=== PATIENT | male | born 1935 | race Caucasian/White ===

== ENCOUNTER 2016-12-10 20:42 | Inpatient (IN) | payer MEDICAID ==
[2016-12-10] MEDS ORDERED: ACETAMINOPHEN SUPPOSITORY 650 MG SUPP RECTAL PRN (21:09)
[2016-12-10] MEDS ORDERED: SCOPOLAMINE 1.5MG/72HR PATCH TRANSDERM PRN (21:09)
[2016-12-10] MEDS ORDERED: ONDANSETRON 4 MG/2 ML VIAL IVP PRN (21:09)
[2016-12-10] MEDS: MORPHINE SULFATE (100 MG/2 ML) 100 MG in SODIUM CHLORIDE 0.9% 100 ML IV SCH ×2 (21:15→23:28)
[2016-12-10] MEDS: LORazepam 2 MG/ML INJ IV PRN (21:54)
[2016-12-10] MEDS: ATROPINE OPHTH SOLN 1% 5ML BTL SUBLINGUAL PRN (21:54)
[2016-12-10 22:13] VITALS: TEMP 98.8
[2016-12-11] MEDS: ATROPINE OPHTH SOLN 1% 5ML BTL SUBLINGUAL PRN (02:10)
[2016-12-11] MEDS: LORazepam 2 MG/ML INJ IV PRN (02:10)
[2016-12-11] MEDS: MORPHINE SULFATE (100 MG/2 ML) 100 MG in SODIUM CHLORIDE 0.9% 100 ML IV SCH ×3 (02:49→10:42)
[2016-12-11 07:12] VITALS: PULSE 124; RESP 14
--- NOTE | 2016-12-11 08:28 | P.HPIM ---
History of Present Illness H&P Date: 12/11/16 Chief Complaint: altered mentation Patient is an 81-year-old male with past medical history of dyslipidemia, shingles, arthritis, and basal cell skin cancer who initially presented to the hospital with complaints of fever, headache, and altered mentation. He was admitted on 12/01/2016 through 12/10/2016. 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 He required mechanical ventilation. He was started on Levaquin, acyclovir, and Zosyn. He was filing to wean from the ventilator due to agitation. He had a repeat head CT on 12/09 which showed a possible acute or subacute large right temporal lobe, right MCA infarct along with mild to moderate right sided subdural hygroma. Due to his prolonged mechanical ventilation and lack of improvement in mentation, and continuation of failing spontaneous breathing trials it was discussed with the family trach/PEG tube versus comfort measures. After discussion with the providers the family elected comfort measures. Patient was subsequently extubated on 12/10/2016 and as transitioned to hospice. Patient seen and examined at bedside with family present. He is currently lethargic and unable to communicate. Per family his morphine drip had to be increased throughout the night last night. He now appears more comfortable. All QUESTIONS answered. Patient is currently noncommunicative and all information is gathered from thorough record review of hospitalization here at [facility] from 2016 through 12/10/2016 and prior discussions with family Review of Systems ROS unobtainable: due to mental status (Unable to obtain secondary to patient being lethargic) Past Medical History Past Medical History: Cancer, Hyperlipidemia Additional Past Medical History / Comment(s): arthritis, pna as a child, shingles 30 years ago, basal cell skin cancer, prior episode of altered mentation 10 years wade reequiring ventilation and 1 year of rehab- told it was due to a virus, c-dff 10-09-07 History of Any Multi-Drug Resistant Organisms: None Reported Past Surgical History: Appendectomy, Joint Replacement, Tonsillectomy Additional Past Surgical History / Comment(s): kusum total hip replacements, colonoscopy, egd,skin cancer lt ear removed. Past Anesthesia/Blood Transfusion Reactions: No Reported Reaction Smoking Status: Former smoker - Past Family History Mother Family Medical History: No Reported History Additional Family Medical History / Comment(s): in her 80's Father Family Medical History: Coronary Artery Disease (CAD), Diabetes Mellitus, Myocardial Infarction (HI) Medications and Allergies Home Medications Medication Instructions Recorded Confirmed Type Cholecalciferol [Vitamin D3] 2,000 unit PO DAILY 12/01/16 12/10/16 History Simvastatin 40 mg PO DAILY 12/01/16 12/10/16 History Allergies Allergy/AdvReac Type Severity Reaction Status Date / Time piperacillin [From Zosyn] Allergy Rash/Hives Verified 12/10/16 21:20 tazobactam [From Zosyn] Allergy Rash/Hives Verified 12/10/16 21:20 Physical Exam Osteopathic Statement: *. No significant issues noted on an osteopathic structural exam other than those noted in the History and Physical/Consult. Vitals: Vital Signs Temp Pulse Resp Pulse Ox 12/11/16 03:30 124 H 14 60 L 12/11/16 03:20 121 H 14 56 L 12/11/16 03:10 118 H 13 55 L 12/11/16 03:00 108 H 12 54 L 12/11/16 02:50 119 H 13 54 L 12/11/16 02:40 121 H 13 54 L 12/11/16 02:30 120 H 13 54 L 12/11/16 02:20 121 H 12 55 L 12/11/16 02:10 121 H 12 56 L 12/11/16 02:00 123 H 8 L 66 L 12/11/16 01:50 117 H 9 L 63 L 12/11/16 01:40 115 H 8 L 72 L 12/11/16 01:30 113 H 8 L 81 L 12/11/16 01:20 117 H 9 L 82 L 12/11/16 01:10 119 H 11 L 82 L 12/11/16 01:00 122 H 10 L 78 L 12/11/16 00:50 123 H 10 L 75 L 12/11/16 00:40 123 H 10 L 74 L 12/11/16 00:30 122 H 10 L 74 L 12/11/16 00:20 122 H 10 L 74 L 12/11/16 00:10 119 H 10 L 75 L 12/11/16 00:00 117 H 11 L 75 L 12/10/16 23:50 116 H 10 L 76 L 12/10/16 23:40 114 H 10 L 75 L 12/10/16 23:30 115 H 10 L 77 L 12/10/16 23:20 117 H 11 L 69 L 12/10/16 23:10 115 H 11 L 68 L 12/10/16 23:00 113 H 11 L 68 L 12/10/16 22:50 111 H 12 71 L 12/10/16 22:40 110 H 12 72 L 12/10/16 22:30 106 H 13 69 L 12/10/16 22:20 101 H 14 74 L 12/10/16 22:12 97 14 80 L 12/10/16 22:10 97 13 81 L 12/10/16 22:00 95 13 83 L 12/10/16 21:50 94 14 86 L 12/10/16 21:40 95 17 86 L 12/10/16 21:30 93 18 87 L 12/10/16 21:20 91 20 90 L 12/10/16 21:10 90 21 92 L 12/10/16 21:00 83 20 92 L 12/10/16 20:50 79 23 94 L 12/10/16 20:46 98.8 F 75 27 H 94 L Intake and Output 12/10/16 12/11/16 12/11/16 22:59 06:59 14:59 Intake Total 9.197 252.96 Output Total 125 575 Balance -115.803 -322.04 Intake: Intake, IV Titration 9.197 252.96 Amount Morphine Sulfate (100 mg/ 9.197 252.96 2 ml) 100 mg In Sodium Chloride 0.9% 100 ml @ 1 MG/HR 1.02 mls/hr IV . Q24H [facility] Rx#:[id number] Output: Urine 125 575 Other: Voiding Method Indwelling Catheter Weight 93.4 kg 93.4 kg General: R Rl, ill-appearing, [appears at stated age], [normal weight] Derm: [no rashes], [no lesions], multiple areas of ecchymosis Head: [atraumatic], [normocephalic], [symmetric] Eyes: Pupils midline and pinpointing, [anicteric sclera], ENT: [no post nasal drip], [no thrush] , [nearest patent] Neck: [No thyromegaly], [no cervical lymphadenopathy], [trachea midline], [ supple] Mouth: [no lip lesion], [mucus membranes moist] Cardiovascular: [S1S2 reg], [no murmur], [positive posterior tibial pulse bilateral], [diffuse anasarca] , [+ JVD], [no clubbing], [no cyanosis], [ capillary refill less than 2 seconds in upper extremities, greater than 2 seconds and lower extremities] Lungs: Decreased breath sounds bilateral bases with rhonchi on the right , [no accessory muscle use] Abdominal: [soft], [ nontender to palpation], [no guarding], [no appreciable organomegaly], [normal bowel sounds] Ext: [no gross muscle atrophy], [no contractures], Neuro: Not withdrawing to light touch in all 4 extremities, Psych: Lethargic, not responsive Results CT Scan - head: report reviewed Thrombosis Risk Factor Assmnt - DVT/VTE Prophylaxis DVT/VTE Prophylaxis: Contraindicated - See note (Currently on hospice measures) Assessment and Plan (1) Altered mental status Status: Acute (2) Aspiration pneumonia Status: Acute (3) CVA (cerebral vascular accident) Status: Acute (4) Herpes encephalitis Status: Acute (5) Respiratory failure Status: Acute Plan: Currently on hospice measures. Continue with hospice care. Continue with morphine drip at 30 mg/h. Patient currently tachypnic but appears comfortable. If he continues to have increasing respiration rate may need to increase morphine drip. Family all present at bedside all questions answered and he states he does not need anything additional at this point in time.
--- NOTE | 2016-12-11 13:28 | P.DS ---
Providers Date of admission: 12/10/16 20:42 Expected date of discharge: 12/11/16 Attending physician: Nae Stevens DO Primary care physician: Antonia Martin - Discharge Diagnosis(es) (1) Current Visit: Yes Status: Acute (2) Herpes encephalitis Current Visit: No Status: Acute (3) Altered mental status Current Visit: No Status: Acute (4) Aspiration pneumonia Current Visit: No Status: Acute (5) CVA (cerebral vascular accident) Current Visit: No Status: Acute (6) Respiratory failure with hypoxia Current Visit: No Status: Acute Hospital Course: Patient is an 81-year-old male with past medical history of dyslipidemia, shingles, arthritis, and basal cell skin cancer who initially presented to the hospital with complaints of fever, headache, and altered mentation. He was admitted on 12/01/2016 through 12/10/2016. 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 He required mechanical ventilation. He was started on Levaquin, acyclovir, and Zosyn. He was failing to wean from the ventilator due to agitation. He had a repeat head CT on 12/09 which showed a possible acute or subacute large right temporal lobe, right MCA infarct along with mild to moderate right sided subdural hygroma. Due to his prolonged mechanical ventilation and lack of improvement in mentation, and continuation of failing spontaneous breathing trials it was discussed with the family trach/PEG tube versus comfort measures. After discussion with the providers the family elected comfort measures. Patient was subsequently extubated on 12/10/2016 and as transitioned to hospice. Overnight on 12/10/2016 he had increasing morphine requirements. He was on a continuous morphine drip. The morning of 12 11 he appeared comfortable in all family was present at bedside. I was notified by nursing at 1320 p.m. that he had at 11:30 AM. Pertinent Studies: None Plan - Discharge Summary New Discharge Prescriptions: No Action Cholecalciferol [Vitamin D3] 2,000 unit PO DAILY Simvastatin 40 mg PO DAILY Discharge Medication List Cholecalciferol [Vitamin D3] 2,000 unit PO DAILY 12/01/16 [History] Simvastatin 40 mg PO DAILY 12/01/16 [History] Discharge Disposition: - Preliminary Cause of Preliminary Cause of : HSV encephalitis
== END 2016-12-11 11:28 | disposition expired | DRG 97 ==
LOC: 6ICU 20:42
PROVIDERS: ADMIT Internal Medicine; ATTEND Internal Medicine
DX: B00.4 Herpesviral encephalitis (principal); I63.9 Cerebral infarction, unspecified; J96.01 Acute respiratory failure with hypoxia; J69.0 Pneumonitis due to inhalation of food and vomit; E78.5 Hyperlipidemia, unspecified; M19.90 Unspecified osteoarthritis, unspecified site; D18.1 Lymphangioma, any site; Z51.5 Encounter for palliative care; Z79.899 Other long term (current) drug therapy; Z88.1 Allergy status to other antibiotic agents; Z87.891 Personal history of nicotine dependence; Z85.828 Personal history of other malignant neoplasm of skin; Z96.643 Presence of artificial hip joint, bilateral; Z82.49 Family history of ischemic heart disease and other diseases of the circulatory system